=== PATIENT | male | born 1965 | race Caucasian/White ===

== ENCOUNTER 2019-03-17 08:24 | Outpatient (CLI) | payer OTHER | END 2019-03-17 23:59 | disposition home or self-care (01) | LOC: RAD 08:24 | PROVIDERS: ATTEND Family Medicine | DX: N20.0 Calculus of kidney (principal); R31.9 Hematuria, unspecified | CPT/HCPCS: 76700; 76770 ==

== ENCOUNTER 2019-05-20 17:04 | Outpatient (CLI) | payer MEDICAID, OTHER | END 2019-05-20 23:59 | disposition home or self-care (01) | LOC: RAD 17:04 | PROVIDERS: ATTEND Family Medicine | DX: I82.412 Acute embolism and thrombosis of left femoral vein (principal); I82.432 Acute embolism and thrombosis of left popliteal vein; R22.42 Localized swelling, mass and lump, left lower limb ==

== ENCOUNTER 2021-04-30 14:48 | Inpatient (IN) | payer OTHER ==
[~2021-04-30] VITALS: Ht 190.5 cm; Wt 117.0 kg
--- NOTE | 2021-04-30 14:56 | NUR ---
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 EKG OBTAINED GIVEN TO ERP. PT PLACED ON 4L NC W/ DESIRED EFFECT.
--- NOTE | 2021-04-30 15:00 | NUR ---
PT TO ROOM FROM TRIAGE, CHANGED INTO GOWN, ALL MONITORS IN PLACE. CALL LIGHT WITHIN REACH, AT BS. PT C/O FEELING LIKE "GARBAGE" FOR A WEEK, [place] AND STATES HE DID NOT PARTICIPATE D/T FEELING BAD. PT RA 80'S IN TRIAGE, PLACED ON 4L NC, SPO2 @ 100% NOW. DENIES SOB/CP.
--- NOTE | 2021-04-30 15:05 | NUR ---
ERP AT BS FOR EVAL
[2021-04-30] MEDS ORDERED: LOSA100T14 PO (15:08)
--- NOTE | 2021-04-30 15:15 | NUR ---
XRAY AT BS
[2021-04-30] MEDS ORDERED: SODIUM CHLORIDE FLUSH 10ML SYR IVF ONE (15:30)
[2021-04-30 15:48] LABS: BASOPHILS % (AUTO) 0 % (0-1); EOSINOPHILS % (AUTO) 1 % (1-7); LYMPHOCYTES % (AUTO) 6 % (22-44); MEAN CORPUSCULAR HEMOGLOBIN 38.3 pg (27.5-34.5); MEAN PLATELET VOLUME 6.9 fL (7.4-10.4); MONOCYTES % (AUTO) 10 % (2-9); NEUTROPHILS % (AUTO) 83 % (42-75); PLATELET COUNT 244 x10^3/uL (130-400); RED BLOOD COUNT 4.52 x10^6/uL (4.38-5.82); RED CELL DISTRIBUTION WIDTH 16.9 % (9.4-14.8)
[2021-04-30 16:00] LABS: ALBUMIN 2.7 g/dL (3.4-5.0); ANION GAP 4 mmol/L (5-15); CALCIUM 8.6 mg/dL (8.5-10.1); CHLORIDE 100 mmol/L (98-107); CREATININE 0.93 mg/dL (0.7-1.3)
[2021-04-30 16:04] LABS: TROPONIN I 0.042 ng/mL (0.000-0.045)
[2021-04-30 16:10] LABS: ANISOCYTOSIS 1+
[2021-04-30 16:11] LABS: <PLATELET ESTIMATE> ADEQUATE; <PLT MORPHOLOGY> NORMAL PLT MORPH; POLYCHROMASIA 1+
--- NOTE | 2021-04-30 16:30 | NUR ---
PT RESTING ON GURNEY, RESPIRATIONS EVEN AND UNLABORED. AT BS. CONNECTED TO ALL MONITORS, CALL LIGHT WITHIN REACH, BED IN LOWEST POSITION, BED RAILS UP X2. COMFORT MEASURES PROVIDED.
--- NOTE | 2021-04-30 16:50 | NUR ---
PT TO CT
[2021-04-30] MEDS ORDERED: OMNIPAQUE 350 MG/ML, 75ML BOTTLE ONE (17:07)
--- NOTE | 2021-04-30 17:07 | NUR ---
PT BACK FROM CT
--- NOTE | 2021-04-30 17:40 | NUR ---
LAB AWAITING ULTRASOUND TO BE DONE TO DRAW ANTI-XA
[2021-04-30] MEDS ORDERED: HEPARIN 5,000 UNITS/ML, 1ML IV ONE (18:00)
[2021-04-30] MEDS ORDERED: HEPARIN 5,000 UNITS/ML, 1ML IV PRN (18:00)
[2021-04-30] MEDS ORDERED: HEPARIN 5,000 UNITS/ML, 1ML ONE (18:10)
[2021-04-30] MEDS ORDERED: HEPARIN 25,000 UNITS/250ML PMX 250 ML ONE (18:10)
[2021-04-30] MEDS ORDERED: SODIUM CHLORIDE FLUSH 10ML SYR IVF PRN (18:30)
[2021-04-30] MEDS ORDERED: ALTEPLASE 10 MG in SODIUM CHLORIDE 0.9% 240 ML IV ONE (18:30)
[2021-04-30] MEDS: HEPARIN 25,000 UNITS/250ML PMX 250 ML IV PRN ×2 (18:37→20:46)
--- NOTE | 2021-04-30 18:45 | NUR ---
Pt in receiver/laborer
--- NOTE | 2021-04-30 18:50 | NUR ---
REPORT TO GARDENIA EVERETT
--- NOTE | 2021-04-30 18:50 | NUR ---
Report from Antonio VARNER
[2021-04-30] MEDS ORDERED: LIDOCAINE 1%, 20ML ONE (18:52)
[2021-04-30] MEDS ORDERED: MIDAZOLAM 1 MG/ML, 2ML ONE (18:52)
[2021-04-30] MEDS ORDERED: FENTANYL PF 100 MCG/2ML ONE (18:52)
[2021-04-30] MEDS ORDERED: Heparin 1000 units/500 ml 500 ML IV SCH (19:00)
[2021-04-30] MEDS ORDERED: ONDANSETRON 2MG/ML, 2ML IVPush PRN (19:00)
[2021-04-30] MEDS ORDERED: POLYETHYLENE GLYCOL 17 GM PACKET PO PRN (19:00)
[2021-04-30] MEDS ORDERED: SODIUM CHLORIDE 0.9% 1,000 ML IV SCH (19:00)
[2021-04-30] MEDS ORDERED: SODIUM CHLORIDE FLUSH 3ML SYRINGE IVF PRN (19:00)
[2021-04-30] MEDS ORDERED: LORazepam 2 MG/ML, 1ML IV PRN (19:00)
[2021-04-30] MEDS ORDERED: ACETAMINOPHEN 500 MG TABLET PO PRN (19:00)
[2021-04-30] MEDS ORDERED: MELATONIN 5 MG TABLET PO PRN (19:00)
[2021-04-30] MEDS ORDERED: morphine SULFATE 10 MG/ML, 1ML IVPush PRN (19:00)
[2021-04-30] MEDS ORDERED: ONDANSETRON 2MG/ML, 2ML ONE (19:38)
[2021-04-30] MEDS ORDERED: FAMOTIDINE 20 MG/2 ML IVPush SCH (21:00)
[2021-04-30] MEDS ORDERED: APIXABAN 5 MG TABLET PO SCH (21:00)
[2021-04-30 21:52] VITALS: BP 100/56
[2021-05-01] MEDS: APIXABAN 5 MG TABLET PO SCH ×3 (02:01→21:20)
[2021-05-01 04:25] LABS: BASOPHILS % (AUTO) 1 % (0-1); EOSINOPHILS % (AUTO) 2 % (1-7); LYMPHOCYTES % (AUTO) 9 % (22-44); MEAN CORPUSCULAR HEMOGLOBIN 38.3 pg (27.5-34.5); MEAN CORPUSCULAR HGB CONC 33.7 g/dL (33.2-36.2); MEAN PLATELET VOLUME 6.7 fL (7.4-10.4); MONOCYTES % (AUTO) 11 % (2-9); NEUTROPHILS % (AUTO) 78 % (42-75); PLATELET COUNT 201 x10^3/uL (130-400); RED BLOOD COUNT 4.03 x10^6/uL (4.38-5.82)
[2021-05-01 04:37] LABS: ALBUMIN 2.3 g/dL (3.4-5.0); ANION GAP 5 mmol/L (5-15); CHLORIDE 104 mmol/L (98-107)
[2021-05-01 04:41] LABS: ALANINE AMINOTRANSFERASE 12 U/L (12-78); ALKALINE PHOSPHATASE 57 U/L (45-117); BILIRUBIN,TOTAL 1.7 mg/dL (0.2-1.0); CREATININE 0.76 mg/dL (0.7-1.3); TOTAL PROTEIN 6.3 g/dL (6.4-8.2)
[2021-05-01] MEDS ORDERED: MAGNESIUM SULFATE PMX 2GM/50ML 50 ML IV ONE (07:00)
[2021-05-01] MEDS ORDERED: POTASSIUM CHLORIDE 20 MEQ TAB.ER.PRT PO ONE (07:00)
[2021-05-01] MEDS ORDERED: CYANOCOBALAMIN 1,000 MCG/ML, 1ML IM ONE (11:00)
[2021-05-01 12:00] VITALS: BP 108/74
[2021-05-01] MEDS: OXYcodone IR 5MG TABLET PO PRN ×2 (13:57→21:20)
[2021-05-01 21:29] VITALS: BP 102/70
[2021-05-01 22:56] LABS: OCCULT BLOOD NEGATIVE (NEGATIVE)
[2021-05-02 03:25] VITALS: BP 111/70
[2021-05-02] MEDS: OXYcodone IR 5MG TABLET PO PRN ×2 (03:30→09:17)
[2021-05-02 04:51] LABS: BASOPHILS % (AUTO) 1 % (0-1); EOSINOPHILS % (AUTO) 4 % (1-7); LYMPHOCYTES % (AUTO) 10 % (22-44); MEAN CORPUSCULAR HEMOGLOBIN 38.7 pg (27.5-34.5); MEAN CORPUSCULAR HGB CONC 34.1 g/dL (33.2-36.2); MEAN PLATELET VOLUME 6.7 fL (7.4-10.4); MONOCYTES % (AUTO) 12 % (2-9); NEUTROPHILS % (AUTO) 73 % (42-75); PLATELET COUNT 215 x10^3/uL (130-400); RED CELL DISTRIBUTION WIDTH 16.7 % (9.4-14.8)
[2021-05-02 05:06] LABS: CALCIUM 7.9 mg/dL (8.5-10.1); CHLORIDE 103 mmol/L (98-107)
[2021-05-02 05:09] LABS: ANION GAP 3 mmol/L (5-15)
[2021-05-02 08:35] VITALS: BP 115/78
[2021-05-02] MEDS ORDERED: CYANOCOBALAMIN 1,000 MCG TABLET PO SCH (09:00)
[2021-05-02] MEDS ORDERED: MULTIVITAMINS/MINERALS TABLET PO SCH (09:00)
[2021-05-02] MEDS: APIXABAN 5 MG TABLET PO SCH (09:17)
[2021-05-02] MEDS ORDERED: MULT-484 PO (10:04)
[2021-05-02] MEDS ORDERED: CYAN-27 PO (10:04)
[2021-05-02] MEDS ORDERED: APIX5TAB PO ×2 (10:04)
[2021-05-02] MEDS ORDERED: FUROSEMIDE 20 MG/2 ML IV SCH (10:30)
[2021-05-02] MEDS ORDERED: SPIRONOLACTONE 25 MG TABLET PO SCH (10:30)
[2021-05-02] MEDS ORDERED: POTA20TA6 PO (11:05)
[2021-05-02] MEDS ORDERED: FURO40TA6 PO (11:05)
== END 2021-05-02 12:00 | disposition home or self-care (01) | DRG 175 ==
LOC: ED 18:11 → EDIP 18:37 → CCU 19:48 → 5SO 05-01 12:02 → DCLOUNGE 05-02 11:39
PROVIDERS: ADMIT Internal Medicine; ATTEND Internal Medicine
PROC: 4A023N6 Measurement of Cardiac Sampling and Pressure, Right Heart, Percutaneous Approach (ICD-10-PCS; principal; 2021-04-30)
PROC: 02HR33Z Insertion of Infusion Device into Left Pulmonary Artery, Percutaneous Approach (ICD-10-PCS; 2021-04-30)
PROC: 02HQ33Z Insertion of Infusion Device into Right Pulmonary Artery, Percutaneous Approach (ICD-10-PCS; 2021-04-30)
PROC: 3E06317 Introduction of Other Thrombolytic into Central Artery, Percutaneous Approach (ICD-10-PCS; 2021-04-30)
DX: I26.09 Other pulmonary embolism with acute cor pulmonale (principal); J96.01 Acute respiratory failure with hypoxia; I82.403 Acute embolism and thrombosis of unspecified deep veins of lower extremity, bilateral; I82.411 Acute embolism and thrombosis of right femoral vein; I87.2 Venous insufficiency (chronic) (peripheral); D72.828 Other elevated white blood cell count; D75.89 Other specified diseases of blood and blood-forming organs; E53.8 Deficiency of other specified B group vitamins; M17.10 Unilateral primary osteoarthritis, unspecified knee; E66.9 Obesity, unspecified; E87.70 Fluid overload, unspecified; I10 Essential (primary) hypertension; R94.31 Abnormal electrocardiogram [ECG] [EKG]; K21.9 Gastro-esophageal reflux disease without esophagitis; N20.0 Calculus of kidney; Z79.899 Other long term (current) drug therapy; Z86.718 Personal history of other venous thrombosis and embolism; Z87.891 Personal history of nicotine dependence; Z79.891 Long term (current) use of opiate analgesic; Z79.01 Long term (current) use of anticoagulants; Z68.31 Body mass index [BMI] 31.0-31.9, adult
CPT/HCPCS: 36415; 37211; 96374; 96375; 99291; J3490; 71045; 71275; 80048; 80053; 82040; 82272; 82607; 83735; 83880; 84100; 84443; 84484; 85014; 85018; 85025; 85520; 87081; 93005; 93306; 93970; 99156; 99157; C1769; C1894; G0378; J1644; J2250; J2405; J3010; Q9967; J1940; J3420

== ENCOUNTER 2021-06-27 08:58 | Outpatient (CLI) | payer OTHER ==
[~2021-06-27 08:58] MED LIST: APIX5TAB PO; CYAN-27 PO; FURO40TA6 PO; LOSA100T14 PO; MULT-484 PO; POTA-143 PO
== END 2021-06-27 23:59 | disposition home or self-care (01) ==
LOC: CVU 08:58
PROVIDERS: ATTEND Physician Assistant
DX: I11.9 Hypertensive heart disease without heart failure (principal)
CPT/HCPCS: 93306